=== PATIENT | male | born 1970 ===

== ENCOUNTER 2017-03-16 23:53 | Emergency (ER) | payer SELFPAY ==
[2017-03-17 00:08] VITALS: O2SAT 98
[2017-03-17] MEDS ORDERED: ALBUTEROL/IPRATROPIUM 1 VIAL SOL INH ONE (00:12)
[2017-03-17] MEDS ORDERED: ALBUTEROL/IPRATROPIUM 1 VIAL SOL ONE (00:17)
[2017-03-17 00:29] VITALS: BP 125/76; PULSE 120; RESP 16; TEMP 100
[2017-03-17] MEDS ORDERED: LEVOFLOXACIN 500 MG TAB PO ONE (00:52)
[2017-03-17] MEDS ORDERED: LEVOFLOXACIN 500 MG TAB ONE (00:55)
== END 2017-03-17 01:09 | disposition home or self-care (01) | DRG 195 ==
LOC: ED 23:53
DX: J18.9 Pneumonia, unspecified organism (principal)
CPT/HCPCS: 71020; 87804; 99283; 99284; J7620